=== PATIENT | male | born 1945 | race Caucasian/White ===

== ENCOUNTER 2024-05-13 07:30 | Day surgery (SDC) | payer MEDICARE ==
[~2024-05-13] VITALS: Ht 185.4 cm; Wt 90.0 kg
[~2024-05-13 07:30] MED LIST: ATORVASTATIN CA80 MG PO; CIALIS10 MG PO; DAILY VITAMIN1 EAC3 PO; IBLOOD GLUCOSE TEST STRIP 1 EA TEST VI PRN; LACTATED RINGER'S 1,000 ML IV SCH; LIDOCAINE HCL 1% 5 ML SDV INJ ONE; MIDAZOLAM HCL 5 MG/5 ML VIAL IV PRN; MOTRIN IB200 MG PO; PERCOCET 7.5-31 EACH PO; TYLENOL EXTRA500 MG PO; VITAMIN C1000 M2 PO; fentaNYL citrate 100 MCG/2 ML VIAL IV PRN
--- NOTE | 2024-05-13 07:44 | NUR ---
PT NOT AVAILABLE FOR VISIT. PROVIDED PRAYER.
[2024-05-13 07:48] VITALS: BP 150/85
[2024-05-13] MEDS ORDERED: MIDAZOLAM HCL 5 MG/5 ML VIAL ONE (08:30)
[2024-05-13] MEDS ORDERED: fentaNYL citrate 100 MCG/2 ML VIAL ONE (08:30)
--- NOTE | 2024-05-13 09:46 | NUR ---
05/13/24 0946 Delphine Arenas PT TO PACU AWAKE AND ALERT DENIES PAIN AND NAUSEA.
[2024-05-13 10:01] VITALS: BP 113/71
--- NOTE | 2024-05-16 14:00 | OR ---
[facility] [address], [place] [address] Signed DATE OF OPERATION: 05/13/2024 SURGEON: Amara Ness MD PREOPERATIVE DIAGNOSES: 1. Positive Cologuard test January 2024. 2. Status post repair of left inguinal hernia having contained sigmoid colon. POSTOPERATIVE DIAGNOSES: 1. Polyp left colon. 2. Extensive diverticulosis of sigmoid and left colon. PROCEDURE: Total colonoscopy to cecum with cold morcellation polypectomy x1. ANESTHESIA: Intravenous sedation; fentanyl 100 mcg, Versed 4.5 mg. INDICATION: This 78-year-old white man is a patient of Dr. Mercado. He underwent Cologuard testing last spring, which was found to be positive. On clinical examination, he had a sizable left inguinal hernia. He underwent colonoscopy, mindful of the possibility that the hernia would contain sigmoid colon precluding completion colonoscopy. Given the positive Cologuard test, it was deemed advisable to proceed with colonoscopy promptly. Unfortunately, at colonoscopy attempt indeed the sigmoid was a major part of the hernia and would not allow for passage of the scope. He subsequently underwent repair of the left inguinal hernia on February 23, 2024 and has healed completely from it. He is now to undergo colonoscopy as intended for positive Cologuard test several months ago. He understands the risk of bleeding, infection, and perforation related to colonoscopy and wished to proceed. FINDINGS: Extensive diverticula were noted of the sigmoid and left colon. The colon was well prepped. There is only one polyp identified in the left colon, which was excised with cold morcellation technique. PROCEDURE IN DETAIL: The patient was brought to the endoscopy suite and placed in the lateral decubitus position, given intravenous sedation to the point of slurred speech and nystagmus. Electronically Signed By: AMARA NESS MD 05/16/24 [place] PATIENT NAME: KAMRAN KEYS OPERATIVE REPORT DATE OF : 47 REPORT #: [id number] PHYSICIAN: AMARA NESS MD PCP: MARRY MERCADO MD REPORT IS CONFIDENTIAL AND NOT TO BE RELEASED WITHOUT AUTHORIZATION [facility] [address], [place] [address] Signed Digital rectal examination was normal. An Olympus video colonoscope was passed in the rectum and manipulated into the sigmoid, which had extensive diverticular changes. With various manipulations, the scope was passed beyond this ultimately to a normal-appearing transverse colon ultimately to the cecum. The ileocecal valve and appendiceal orifice were normal. Irrigation was undertaken. The scope was carefully withdrawn. Examination showed no sign of abnormality other than diverticula in mid left colon where a small polyp was noted. This was excised with cold morcellation technique. Further withdrawal showed no other abnormalities. Retroflexed view of the rectum was normal. Scope was removed and the patient was taken to the recovery room in good condition. CONCLUDING DIAGNOSES: 1. Polyp x1. 2. Extensive diverticulosis. PLAN: Recommend repeat colonoscopy in seven years based on current guidelines, sooner if symptoms should develop. Would recommend high-fiber diet as well. MD DEREK August/ROXANE /[id number] cc: Marry Mercado MD Copies: ~ Electronically Signed By: AMARA NESS MD 05/16/24 1400 PATIENT NAME: KAMRAN KEYS OPERATIVE REPORT DATE OF : 47 REPORT #: [id number] PHYSICIAN: AMARA NESS MD PCP: MARRY MERCADO MD REPORT IS CONFIDENTIAL AND NOT TO BE RELEASED WITHOUT AUTHORIZATION
--- NOTE | 2024-05-23 22:44 | PATH ---
[facility] [address], [place] [address] Signed SPECIMEN(S): A HEPATIC FLEXURE COLON POLYP SPECIMEN SOURCE: A. HEPATIC FLEXURE COLON POLYP CLINICAL HISTORY: Pre-: Positive Cologuard. Post: Diverticulosis, polyp* FINAL PATHOLOGIC DIAGNOSIS: Colon, hepatic flexure, polyp, biopsy: - Sessile serrated polyp. - No evidence of malignancy. COMMENT: The sections through the colonic polyp show the presence of serrated glands lined by cells that histologically more closely resemble hyperplastic epithelium than adenomatous epithelium. Unlike traditional hyperplastic polyps the serrated appearance extends to the base of the mucosa. No dysplasia or malignancy is identified. This polyp type can be seen in hyperplastic (serrated) polyposis syndrome. Recent data suggest that patients with sessile serrated polyps, if incompletely excised or associated with multiple similar polyps, may benefit from a shorter surveillance interval (e.g., 1-2 years) since there is now compelling evidence that these lesions often contain a methylator phenotype. References: Giles DC, Oleg JR, Pattie C, Wes KP. Serrated polyps of the large intestine: a morphologic and molecular review of an evolving concept. Am J Clin Pathol. 2005;124:380-91. TWK MICROSCOPIC EXAMINATION: Histologic sections of all submitted blocks are examined by light microscopy. These findings, together with the gross examination, support the pathologic diagnosis. GROSS DESCRIPTION: The specimen, labeled and designated "Mickey, hepatic flexure colon polyp," is received in formalin and consists of eight dale soft tissue fragments, ranging from 0.1 to 0.2 cm. Entirely submitted in (A1). JS (under the direct supervision of a pathologist) PATIENT NAME: KAMRAN KEYS PATHOLOGY DATE OF : 47 REPORT #: [id number] PHYSICIAN: ARVIND PATHOLOGY PCP: KENDAL NORRIS MD REPORT IS CONFIDENTIAL AND NOT TO BE RELEASED WITHOUT AUTHORIZATION [facility] [address], [place] [address] Signed The Gross Description was prepared using a voice recognition system. The report was reviewed for accuracy; however, sound-alike word errors, addition and/or deletions may occur. If there is any question about this report, please contact Client Services. ADDITIONAL NOTES: Immunohistochemical and/or in situ hybridization studies if performed in this case included appropriate positive controls that reacted as expected. This test was developed and its performance characteristics determined by [facility]. It has not been cleared or approved by the U.S. Food and Drug Administration. The FDA has determined that such clearance or approval is not necessary. This test is used for clinical purposes. It should not be regarded as investigational or for research. [facility] is certified under the Clinical Laboratory Improvement Amendments of 1988 (CLIA) as qualified to perform high complexity clinical laboratory testing. PERFORMING LABORATORY: Technical component was performed by [facility], [address] [place] [address] (CLIA# [id number]). Professional interpretation was performed by [facility], [address] [place] [place] [address] (CLIA#:[id number]). Diagnostician: Vinnie Rg MD Pathologist Electronically Signed 05/23/2024 Copies: ~ PATIENT NAME: KAMRAN KEYS PATHOLOGY DATE OF : 47 REPORT #: [id number] PHYSICIAN: ARVIND RAMIREZ PCP: KENDAL NORRIS MD REPORT IS CONFIDENTIAL AND NOT TO BE RELEASED WITHOUT AUTHORIZATION
== END 2024-05-13 10:20 | disposition home or self-care (01) ==
LOC: DS 07:30
PROVIDERS: ATTEND Surgery
PROC: 0DBG8ZX Excision of Left Large Intestine, Via Natural or Artificial Opening Endoscopic, Diagnostic (ICD-10-PCS; principal; 2024-05-13 08:45)
DX: Z12.11 Encounter for screening for malignant neoplasm of colon (principal); K63.5 Polyp of colon; K57.30 Diverticulosis of large intestine without perforation or abscess without bleeding; Z79.899 Other long term (current) drug therapy
CPT/HCPCS: 88305; 99153; G0500; J2250; J3010; J7121

== ENCOUNTER 2024-10-20 07:42 | Day surgery (SDC) | payer MEDICARE ==
[~2024-10-20] VITALS: Ht 185.4 cm; Wt 90.9 kg
[~2024-10-20 07:42] MED LIST changes: +CEFAZOLIN SODIUM 2 GM/20 ML SYR IV SCH; +HEParin SOD (PORCINE) 5,000 UNIT/ML SDV SUB-Q SCH; -MIDAZOLAM HCL 5 MG/5 ML VIAL IV PRN; +SELENIUM SULFI120 ML TOP; -fentaNYL citrate 100 MCG/2 ML VIAL IV PRN
[2024-10-20 08:16] VITALS: BP 153/96
[2024-10-20] MEDS ORDERED: LIDOCAINE HCL 2% 20 MG/ML VIAL INJ ONE (08:36)
[2024-10-20] MEDS ORDERED: DEXAMETHASONE SOD PHOS 4 MG/ML VIAL ONE ×2 (08:36→09:53)
[2024-10-20] MEDS ORDERED: propofoL 200 MG/20 ML VIAL ONE (08:36)
[2024-10-20] MEDS ORDERED: Ropivacaine HCl 0.5% 30 ML VIAL ONE (08:36)
[2024-10-20] MEDS ORDERED: ondansetron HCL 4 MG/2 ML VIAL ONE (08:36)
[2024-10-20] MEDS ORDERED: fentaNYL citrate 100 MCG/2 ML VIAL ONE (08:36)
[2024-10-20] MEDS ORDERED: SODIUM CHLORIDE 0.9% 20 ML IV ONE (08:36)
[2024-10-20] MEDS ORDERED: IBLOOD GLUCOSE TEST STRIP 1 EA TEST VI PRN (08:45)
[2024-10-20] MEDS ORDERED: NALOXONE HCL 0.4 MG SYR IV PRN ×2 (08:45→11:15)
[2024-10-20] MEDS ORDERED: HYDROmorphone HCL 1 MG/ML SYR IV PRN (08:45)
[2024-10-20] MEDS ORDERED: droPERidol 5 MG/2 ML VIAL IV PRN (08:45)
[2024-10-20] MEDS ORDERED: PROCHLORPERAZINE EDISYLATE 10 MG/2 ML VIAL IV PRN (08:45)
[2024-10-20] MEDS ORDERED: fentaNYL citrate 50 MCG/ML SDV IV PRN (08:45)
[2024-10-20] MEDS ORDERED: ondansetron HCL 4 MG/2 ML VIAL IV PRN (08:45)
--- NOTE | 2024-10-20 09:24 | NUR ---
0840-PT REPORTS DRINKING APPROX 3-8 OZ OF COFFEE AT 0630 THIS AM. REPORTED TO PROVIDER AND ANESTHESIA. PT ALSO REFUSES HEPARIN INJECTION. HE REPORTS HE HAD "ALOT OF BLEEDING FROM SURGICAL SITE" POST-OP.
[2024-10-20] MEDS ORDERED: ACETAMINOPHEN 1,000 MG/100 ML VIAL ONE (09:42)
[2024-10-20] MEDS ORDERED: ePHEDrine sulfate 50 MG/ML AMP ONE (09:55)
[2024-10-20] MEDS ORDERED: LACTATED RINGER'S 1,000 ML IV ONE (10:10)
--- NOTE | 2024-10-20 11:01 | NUR ---
10/20/24 1101 Stephie Hardy 1049-PATIENT ARRIVED TO PACU ON 6L MASK RR EVEN NONAROUSABLE. SR HR 90'S IVF INFUSING. DRESSING TO LEFT GROIN INTACT. SMALL AMT OF SHADOWING BENEATH STERI STRIPS. 1053-PATIENT AROUSING MOVING ALL EXTREMITIES PLACED ON RA RR EVEN. PATIENT REPORTS PAIN "7 TO INCISION SITE" 1056-PATIENT MEDICATED PER EMAR 25 MCG FENTANYL IVP. RA 95% RR EVEN.
[2024-10-20] MEDS ORDERED: IBUPROFEN600 MG PO (11:06)
[2024-10-20] MEDS ORDERED: ACETAMINOPHEN500 MG PO (11:06)
[2024-10-20] MEDS ORDERED: OXYCODON-ACETA1 EAC2 PO (11:06)
[2024-10-20] MEDS ORDERED: LACTATED RINGER'S 1,000 ML IV SCH (11:15)
[2024-10-20] MEDS ORDERED: IBUPROFEN 600 MG TAB PO PRN (11:15)
[2024-10-20] MEDS ORDERED: OXYCODONE/APAP 7.5/325 TAB PO PRN (11:15)
[2024-10-20] MEDS ORDERED: ACETAMINOPHEN 500 MG TAB PO PRN (11:15)
[2024-10-20 11:20] VITALS: BP 130/63
--- NOTE | 2024-10-20 11:30 | NUR ---
1120-PT RETURNED TO DS AAOX3, ANSWERING QUESTIONS APPROPRAITELY, ON RA. VS TAKEN. IV SITE ASSESSED, PATENT, AND INFUSING LR PER ORDERS. REPORT RECEIVED FROM BUSINESS ANALYSIS PROFESSIONAL. SURGICAL SITE VISUALIZED WITH BUSINESS ANALYSIS PROFESSIONAL. SMALL AMT OF SANGUINOUS DRAINAGE PRESENT ON BOTH LEFT AND RIGHT BORDER OF DRESSING. DRSG REMAINS INTACT. PT NOTED TO BE TAKING SMALL SIPS OF WATER UPON RETURN WELL. PT RATES PAIN IN SURGICAL SITE AT 02/16. PT DENIES NAUSEA WHEN ASKED. IN ROOM AT PT BEDSIDE. BED IN LOW POSITION, WHEELS LOCKED, BILAT RAILS IN PLACE, AND CALL LIGHT WITHIN REACH. 1125-PT PROVIDED WITH APPLESAUCE AND [place] CRACKERS. 1129-PT GIVEN ORAL PAIN MED FOR REPORTS OF PAIN IN SURGICAL SITE 02/16. PT WAS GIVEN THE OPTION OF 1-2 TABS PER ORDERS AND DIRECTED 1 TAB.
--- NOTE | 2024-10-20 12:08 | NUR ---
1158-PT WITH REPORTS OF CONTINUED PAIN AND HAS REQUESTED TO HAVE THE 2ND TAB OF ORDERED ORAL PAIN MEDS. PAIN MED GIVEN FOR CONT REPORTS OF PAIN 6-7/10 IN SURGICAL SITE.
[2024-10-20 12:20] VITALS: BP 139/75
--- NOTE | 2024-10-20 12:48 | NUR ---
1220-INTO PTS ROOM FOR ROUTINE REASSESSMENT. VS TAKEN. IV SITE ASSESSED. SURGICAL SITE VISUALIZED AND NO ACUTE CHANGES NOTED. PT REPORTS IMPROVEMENT IN PAIN AND RATES PAIN AT 5/10. PT REPORTS THIS TO BE A TOLERABLE LEVEL FOR HIM. PT DENIES NAUSEA WHEN ASKED. PT HAS TOLERATED PO FOOD AND FLUIDS W/O ISSUES REPORTED/NOTED. REMAINS IN ROOM AT BEDSIDE. PT FEELS HE MAY BE ABLE TO VOID NOW BUT REQUESTS TO GET DRESSED BEFORE WALKING TO RESTROOM. , PERSONAL BELONINGS AND CALL LIGHT WITHIN PT REACH. 1235-PT AMBULATED [facility] TO RESTROOM AND WAS ABLE TO VOID APPROX 300 ML OF CLR, YELLOW URINE. 1240-INTO PTS ROOM FOR DC EDUCATION. LEFT TO PULL CAR AROUND TO FRONT. PT PROVIDED RX, F/U APPT, WOUND CARE, ACTIVITY RESTICTIONS. SURGICAL SITES VISUALIZED SURGICAL SITE POST AMBULATION AND NO ACUTE CHANGES NOTED. PT VERBALIZED UNDERSTADNING. ALL QUESTIONS ANSWERED. 1248-IV REMOVED. TIP APPEARS INTACT. PRESSURE DRSG APPLIED WITH GAUZE AND COBAN.
--- NOTE | 2024-10-20 12:50 | NUR ---
PT DISCHARGED FROM DS VIA WC TO PASSENGER SIDE OF WIFES VEHICLE. ALL PERSONAL BELONINGS TAKEN WITH HIM.
[2024-10-20] MEDS ORDERED: SEVOFLURANE 250 ML BTL INH ONE (12:57)
--- NOTE | 2024-10-23 07:47 | OR ---
[facility] [address] [place], [place] [address] Signed DATE OF OPERATION: 10/20/2024 SURGEON: Amara Ness MD PREOPERATIVE DIAGNOSIS: Recurrent left inguinal hernia. POSTOPERATIVE DIAGNOSIS: Recurrent left inguinal hernia. PROCEDURES: 1. Repair of recurrent left inguinal hernia. 2. Implantation of Prolene mesh underlay technique with closure of fascia over mesh. ANESTHESIA: General, LMA; Cameron Carmona, VERONICA and local 10 mL of 0.25% Marcaine with epinephrine and preoperative left inguinal block. 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 He is a patient of Dr. Mercado. He presented with a giant left inguinal hernia, which had the colon within it precluding colonoscopic passage. He did undergo colonoscopy subsequent to his hernia repair, which was in February of 2024. 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 In the meantime, he has developed a bulge in the left groin area consistent with a much smaller, but recurrent left inguinal hernia. It is recalled that he was seen immediately postop the following day, as he had a considerable amount of swelling and some bleeding and apparent hematoma at the site of his operation at that time. The patient had reported protracted sneezing and coughing and straining. There appeared to be no evidence of recurrent hernia at that time. As time has gone on, he has of course developed a reducible hernia in the area, and almost certainly his initial coughing episode with sneezing disrupted the repair. He is admitted at this time to undergo repair of the hernia. He understands the risk of bleeding, infection, recurrence, testicular injury or loss and other unforeseen complications. Understanding this, he wished to proceed. FINDINGS: Indeed the defect was in the region of the internal ring. It appeared that the mesh had distracted from the inguinal ligament in the inferolateral aspect, likely related to his coughing and straining early on. The remaining inguinal ligament and external oblique Electronically Signed By: AMARA NESS MD 10/23/24 0747 PATIENT NAME: KAMRAN KEYS OPERATIVE REPORT DATE OF : 47 REPORT #: [id number] PHYSICIAN: AMARA NESS MD PCP: MARRY MERCADO MD REPORT IS CONFIDENTIAL AND NOT TO BE RELEASED WITHOUT AUTHORIZATION [facility] [address] [place], [place] [address] Signed fascial layers were contiguous and quite damian. Repair consisted of implantation of Prolene mesh in the defect area with reapproximation of the ligament and contiguous external oblique fascia closing the defect more fully. As regard to the vascularity of the testicle, there was one testicular vessel that was contiguous with the floor, which was divided and ligated, but it appeared other collateral vessels remained intact with the testicle. Time will tell of course. DESCRIPTION OF PROCEDURE: The patient was brought to the operating room, given a general LMA type anesthetic. Preoperative antibiotic Ancef was given. Sequential compression device stockings were used as well. The lower abdomen was clipped and prepared with chlorhexidine solution and draped sterilely. The previous incision in the left groin was incised and dissection carried through the subcutaneous tissue with electrocautery and blunt dissection. The Preet's layer was still rather thickened and was divided ultimately revealing a bulky hernia in the layer well below the Preet's layer. This was freed from the external oblique fascia more fully. Further dissection identified the cord, which was freed from the hernia itself which was near the internal ring essentially. External oblique fascia was and previous mesh that was in the floor of the canal was identified, firmly fibrotic, not infected and so on. The bulk of the mesh that had been implanted was in the medial aspect of the cord and the tails of the graft that had been pexed to the shelving edge of the inguinal ligament laterally appeared to have been distracted from it, no doubt related to his straining episode. The cord was freed from the floor more fully and the arterial vessel had been divided requiring ligation. Additional cord structures appeared to be normal including the vas deferens. The cord was encircled with a Randolph drain, allowing for good retraction and more clear identification of structures. The defect was in the medial aspect of the floor related to distraction of mesh previously. The remaining portion was quite damian and well-formed. The properitoneal space and the contiguous herniated properitoneal fat was replaced into the abdominal cavity and a segment of Prolene mesh was cut to an oblong configuration and secured medially and laterally. ProGrip mesh was used. The remnants of the tendon of the transversus abdominis were secured to the inguinal ligament and the contiguous external oblique fascia that had fused with it. Quite clearly the defect was completely well repaired, bolstered by mesh and of course the fascial layer itself. The cord was not compromised. Irrigation was undertaken and no bleeding was noted. Preet layer was reapproximated with interrupted 2-0 Vicryl and skin closed with running subcuticular 3-0 Vicryl. Steri-Strips were applied as was an Acticoat dressing. The patient was ultimately extubated and transferred to the recovery room in good condition, having suffered no complications. Sponge, needle, and instrument counts reported as correct x3. Electronically Signed By: AMARA NESS MD 10/23/24 0747 PATIENT NAME: KAMRAN KEYS OPERATIVE REPORT DATE OF : 47 REPORT #: [id number] PHYSICIAN: AMARA NESS MD PCP: MARRY MERCADO MD REPORT IS CONFIDENTIAL AND NOT TO BE RELEASED WITHOUT AUTHORIZATION [address] [place], [place] [address] Signed Amara Ness MD /ERNIE /[id number] cc: Marry Mercado MD Copies: ~ Electronically Signed By: AMARA NESS MD 10/23/24 0747 PATIENT NAME: KAMRAN KEYS OPERATIVE REPORT DATE OF : 47 REPORT #: [id number] PHYSICIAN: AMARA NESS MD PCP: MARRY MERCADO MD REPORT IS CONFIDENTIAL AND NOT TO BE RELEASED WITHOUT AUTHORIZATION
== END 2024-10-20 12:50 | disposition home or self-care (01) ==
LOC: DS 07:42
PROVIDERS: ATTEND Surgery
PROC: 0YU60JZ Supplement Left Inguinal Region with Synthetic Substitute, Open Approach (ICD-10-PCS; principal; 2024-10-20 09:35)
DX: K40.91 Unilateral inguinal hernia, without obstruction or gangrene, recurrent (principal); Z86.0101 Personal history of adenomatous and serrated colon polyps; Z79.899 Other long term (current) drug therapy
CPT/HCPCS: 00830; C1781; J0131; J0690; J1100; J2405; J2704; J2795; J3010; J7121